=== PATIENT | male | born 1980 | race Caucasian/White ===

== ENCOUNTER 2019-01-16 18:36 | Emergency (ER) | payer OTHER ==
[~2019-01-16] VITALS: Ht 172.7 cm; Wt 79.4 kg
[2019-01-16] MEDS ORDERED: NEXIUM40 MG PO (18:44)
[2019-01-16 19:09] LABS: ABSOLUTE EOSINOPHILS 0.3 thou/uL (0.0-0.7); ABSOLUTE LYMPHOCYTES 3.2 thou/uL (0.8-5.3); ABSOLUTE MONOCYTES 0.6 thou/uL (0.0-1.2); BASOPHILS 0.7 %; EOSINOPHILS 4.1 %; HEMOGLOBIN 15.1 gm/dL (14.0-18.0); LYMPHOCYTES 45.2 %; MCH 28.2 pg (26.0-34.0); MCHC 34.4 g/dL (28.0-37.0); MCV 82.1 fL (80.0-100.0); MONOCYTES 7.9 %; NUCLEATED RBCS 0 /100WBC; PLATELET COUNT* 197 thou/uL (150-400); POLYS 42.1 %; RBC 5.36 mil/uL (4.50-6.00); RDW-CV 13.3 % (10.5-14.5)
[2019-01-16 19:18] LABS: ANION GAP 7 mmol/L (7-16); BUN 16 mg/dL (7-18); CALCIUM 9.3 mg/dL (8.5-10.1); CHLORIDE 107 mmol/L (98-107); CO2 30 mmol/L (21-32); CREATININE 1.1 mg/dL (0.6-1.3); GLUCOSE 94 mg/dL (70-99); POTASSIUM 3.7 mmol/L (3.5-5.1); SODIUM 144 mmol/L (136-145)
[2019-01-16 19:22] LABS: APTT 30.6 Seconds (25.0-31.3); PROTIME 10.4 Seconds (9.20-11.50)
[2019-01-16 19:32] LABS: ALBUMIN 3.9 g/dL (3.4-5.0); ALKALINE PHOSPHATASE 85 U/L (46-116); CK-MB MASS < 0.5 ng/mL (<0.5-3.6); LIPASE 296 U/L (73-393); NT-PRO BRAIN NAT PEPTIDE 22 pg/mL (<300); SGOT 15 U/L (15-37); SGPT 28 U/L (30-65); TOTAL BILIRUBIN 0.4 mg/dL (<0.1-1.0); TROPONIN-I LEVEL <0.06 ng/mL (<0.06)
[2019-01-16] MEDS ORDERED: CARAFATE 1 GM TA1 GM PO (20:50)
[2019-01-16 21:13] VITALS: BP 136/101
--- NOTE | 2019-01-19 12:19 | EKG ---
[place] [address] ELECTROCARDIOGRAM REPORT Name: ASHLEY CABRERA Room: [facility]#: [id number] Admission: 01/16/19 Attend Phys: Discharge: 01/16/19 Date of : 84 Report #: [id number] THIS REPORT FOR: //name// 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
== END 2019-01-16 21:13 | disposition home or self-care (01) ==
LOC: M.ERS 18:36
PROVIDERS: Family Medicine
DX: K21.9 Gastro-esophageal reflux disease without esophagitis (principal); Z88.2 Allergy status to sulfonamides; Z88.8 Allergy status to other drugs, medicaments and biological substances

== ENCOUNTER 2019-06-20 16:19 | Inpatient (IN) | payer OTHER ==
[~2019-06-20] VITALS: Ht 175.3 cm; Wt 79.4 kg
[~2019-06-20 16:19] MED LIST: CARAFATE 1 GM TA1 GM PO; NEXIUM40 MG PO
[2019-06-20 16:28] VITALS: BP 132/97
[2019-06-20 17:20] LABS: ABSOLUTE LYMPHOCYTES 1.1 thou/uL (0.8-5.3); ABSOLUTE MONOCYTES 1.1 thou/uL (0.0-1.2); ABSOLUTE NEUTROPHILS 10.3 thou/uL (1.6-8.1); BASOPHILS 0.2 %; EOSINOPHILS 0.3 %; HEMATOCRIT 45.6 % (42.0-52.0); HEMOGLOBIN 15.8 gm/dL (14.0-18.0); LYMPHOCYTES 8.6 %; MCH 28.6 pg (26.0-34.0); MCHC 34.7 g/dL (28.0-37.0); MCV 82.7 fL (80.0-100.0); MONOCYTES 8.8 %; MPV 9.2 fl. (7.2-11.1); NUCLEATED RBCS 0 /100WBC; PLATELET COUNT* 192 thou/uL (150-400); POLYS 82.1 %; RBC 5.52 mil/uL (4.50-6.00); RDW-CV 14.1 % (10.5-14.5); WBC 12.5 thou/uL (4.0-11.0)
[2019-06-20 17:28] LABS: CALCIUM 9.5 mg/dL (8.5-10.1); CREATININE 1.2 mg/dL (0.6-1.3); POTASSIUM 3.8 mmol/L (3.5-5.1)
[2019-06-20 17:33] LABS: ALBUMIN 4.4 g/dL (3.4-5.0); TOTAL BILIRUBIN 0.8 mg/dL (<0.1-1.0); TOTAL PROTEIN 7.9 g/dL (6.4-8.2)
[2019-06-20 18:58] LABS: URINE BILIRUBIN NEGATIVE (Negative); URINE BLOOD NEGATIVE (Negative); URINE CLARITY CLEAR; URINE COLOR YELLOW; URINE GLUCOSE-RANDOM NEGATIVE (Negative); URINE KETONES TRACE (Negative); URINE LEUKOCYTES-REFLEX NEGATIVE (Negative); URINE NITRITE-REFLEX NEGATIVE (Negative); URINE PROTEIN NEGATIVE (Negative); URINE UROBILINOGEN 0.2 E.U./dl (0.2-1.0)
[2019-06-20 19:05] LABS: AMP/METHAMP Negative (Negative); BARBITURATES Negative (Negative); BENZODIAZEPINES Negative (Negative); COCAINE Negative (Negative); METHADONE Negative (Negative); OPIATES Negative (Negative); PCP Negative (Negative); THC Negative (Negative)
[2019-06-20 20:14] VITALS: BP 125/99
[2019-06-20 21:08] VITALS: BP 134/87
[2019-06-21 04:04] LABS: ABSOLUTE EOSINOPHILS 0.2 thou/uL (0.0-0.7); ABSOLUTE LYMPHOCYTES 1.6 thou/uL (0.8-5.3); ABSOLUTE MONOCYTES 0.7 thou/uL (0.0-1.2); ABSOLUTE NEUTROPHILS 5.5 thou/uL (1.6-8.1); BASOPHILS 0.1 %; EOSINOPHILS 2.1 %; HEMATOCRIT 39.6 % (42.0-52.0); HEMOGLOBIN 13.9 gm/dL (14.0-18.0); LYMPHOCYTES 20.2 %; MCH 29.1 pg (26.0-34.0); MCHC 35.1 g/dL (28.0-37.0); MCV 82.7 fL (80.0-100.0); MONOCYTES 8.3 %; MPV 9.1 fl. (7.2-11.1); NUCLEATED RBCS 0 /100WBC; PLATELET COUNT* 164 thou/uL (150-400); POLYS 69.3 %; RBC 4.79 mil/uL (4.50-6.00); RDW-CV 14.1 % (10.5-14.5)
[2019-06-21 04:07] LABS: ALBUMIN 3.4 g/dL (3.4-5.0); POTASSIUM 3.7 mmol/L (3.5-5.1); TOTAL BILIRUBIN 0.7 mg/dL (<0.1-1.0); TOTAL PROTEIN 6.1 g/dL (6.4-8.2)
[2019-06-21 11:27] VITALS: BP 137/99
[2019-06-21 13:15] VITALS: BP 137/99
--- NOTE | 2019-06-22 18:14 | CON ---
[address] [address] CONSULTATION Name: ASHLEY CABRERA Room: [address] IN ..#: [id number] Admission: 06/20/19 Attend Phys: Lakhwinder Quiñonse MD Discharge: 06/21/19 Date of : 84 Report #: [id number] THIS REPORT FOR: //name// CC: Lakhwinder Quiñones [facility] physician/PCP DATE OF SERVICE: 06/21/2019 HISTORY OF PRESENT ILLNESS: This is a pleasant 39-year-old gentleman with no significant past medical history who is presenting for abdominal pain, nausea, vomiting. The patient reports the symptoms began yesterday and lasted for about 3 hours. The patient reports began with nausea and vomiting and subsequently developed abdominal pain. The patient reports the pain was located in the epigastric region, localized, nonradiating, not associated with any particular aggravating or relieving factors. The pain has since subsided after receiving fluids and pain medications in the hospital. The patient also reports an intense 3-hour period of vomiting where he may have thrown up between 10 or 12 times. He reports vomiting, mostly food and clear fluid. Denies any hematemesis, hematochezia. The patient denies any weight loss, diarrhea or other symptoms. The patient reports he had somewhat similar symptoms about 10 years back, but he cannot recollect if he was diagnosed with pancreatitis. He denies any sick contacts or recent travel. PAST MEDICAL HISTORY: Nonsignificant. PAST SURGICAL HISTORY: The patient had appendectomy in high school. SOCIAL HISTORY: The patient denies smoking, alcohol or recreational drug use. FAMILY HISTORY: No family history of colon cancer or Alexander related neoplasia. REVIEW OF SYSTEMS: Negative except for what was mentioned in the HPI. PHYSICAL EXAMINATION: VITAL SIGNS: Temperature 36.7, pulse rate 93, respirations 14, blood pressure 132/97, pulse ox 99% on room air. GENERAL: The patient is alert, awake, oriented x 3. HEENT: Pupils are equal, round, reactive to light and accommodation. Mucous membranes are moist. There is no congestion. LUNGS: Clear to auscultation bilaterally. CARDIOVASCULAR: Rate and rhythm regular, S1, S2 present. ABDOMEN: Soft. There is no distention, guarding or rigidity. EXTREMITIES: Warm, well perfused. There is no edema. SKIN: Warm and dry. LABORATORY DATA: Hemoglobin 13.9, hematocrit 39.6, platelet count 164, [place] [address] CONSULTATION Name: ASHLEY CABRERA Room: [address]#: [id number] Admission: 06/20/19 Attend Phys: Lakhwinder Quiñones MD Discharge: 06/21/19 Date of : 84 Report #: [id number] count 8.0. Sodium 143, potassium 3.7, chloride 108, bicarbonate 26, BUN 14, creatinine 1.0, total bilirubin 0.7, AST 13, ALT 23, alkaline phosphatase 93. Lipase on presentation 3309 and subsequently 412. IMAGING: Abdomen and pelvis CT, this demonstrates borderline low-grade gastroenteritis. No free fluid, no bowel obstruction, with small fat containing umbilical hernia. ASSESSMENT AND PLAN: Pleasant 39-year-old gentleman with self-limited episode of acute idiopathic pancreatitis, presenting for evaluation. I would recommend checking IgG subclasses to rule out autoimmune pancreatitis. Advance diet as tolerated. Okay to discharge, if the patient is able to tolerate a diet. I will set up outpatient EUS in 4 weeks for idiopathic pancreatitis. <ELECTRONICALLY SIGNED> By: Anil Rodriguez MD 06/22/19 1814 1129 [id number] Rodriguez MD /nt
[2019-06-23 05:10] LABS: IgG 845 mg/dL (700-1600)
== END 2019-06-21 13:35 | disposition home or self-care (01) | DRG 439 ==
LOC: M.ERS 16:19 → M.TBA-ER 18:23 → M.ORTHSURG 20:00
PROVIDERS: Internal Medicine Gastroenterology; Personal Emergency Response Attendant; ADMIT Internal Medicine
DX: K85.00 Idiopathic acute pancreatitis without necrosis or infection (principal); R65.10 Systemic inflammatory response syndrome (SIRS) of non-infectious origin without acute organ dysfunction; K21.9 Gastro-esophageal reflux disease without esophagitis; D72.829 Elevated white blood cell count, unspecified; A08.4 Viral intestinal infection, unspecified; E86.0 Dehydration; Z88.1 Allergy status to other antibiotic agents; Z90.49 Acquired absence of other specified parts of digestive tract; Z79.899 Other long term (current) drug therapy; Z88.2 Allergy status to sulfonamides